=== PATIENT | female | born 2000 | race Caucasian/White ===

== ENCOUNTER 2022-10-01 18:02 | Emergency (ER) | payer OTHER ==
[~2022-10-01] VITALS: Ht 149.9 cm; Wt 77.1 kg
[2022-10-01 18:07] VITALS: BP 112/73
[2022-10-01] MEDS ORDERED: BACITRACIN OINT 500 UNITS/GM PKT TP ONE ×2 (18:18→18:25)
--- NOTE | 2022-10-01 18:20 | NUR ---
SITE IRRIGATED WITH IODINE 10% AND NS 0.9% SOLUTION, WRAPPED IN NON ADHERENT GAUZE AND GAUZE ROLL.
[2022-10-01] MEDS ORDERED: AMOX-1230 PO (18:25)
[2022-10-01] MEDS ORDERED: BACI-416 TP (18:25)
[2022-10-01] MEDS ORDERED: IBUP-2213 PO (18:25)
[2022-10-01 19:18] VITALS: BP 112/73
== END 2022-10-01 19:21 | disposition home or self-care (01) ==
LOC: EDSEX 18:02 → MED 18:02
DX: S51.851A Open bite of right forearm, initial encounter (principal); Z79.2 Long term (current) use of antibiotics; Z79.1 Long term (current) use of non-steroidal anti-inflammatories (NSAID); W55.01XA Bitten by cat, initial encounter; Y93.89 Activity, other specified; Y92.89 Other specified places as the place of occurrence of the external cause; Y99.8 Other external cause status
CPT/HCPCS: 90471; 90715; 99283